=== PATIENT | female | born 1945 | race Caucasian/White ===

== ENCOUNTER 2016-07-09 05:27 | Emergency (ER) | payer OTHER ==
[~2016-07-09] VITALS: Ht 167.6 cm; Wt 110.2 kg
[~2016-07-09 05:27] MED LIST: ALEVE220 MG PO; ASPIR 8181 M1 PO; ASPIR 8181 MG PO; BENADRYL25 MG PO; CALCIUM + D 601 EACH PO; CALTRATE PLUS1 EACH PO; CIPRO500 MG PO; CIPROFLOXACIN500 M1 PO; CITALOPRAM HBR20 MG PO; CLARITIN10 MG PO; COMFORT EZ MC; ESCITALOPRAM OX10 MG PO; FISH OIL 1,0001 EA10 PO; FLONASE16 G1 BOTH NARES; HUMALOG MI100 UNIT/5 SC; HUMALOG MI100 UNIT/6 SC; IRON325 MG PO; LISINOPRIL10 MG PO; MELATIN3 MG PO; MULTI COMPLETE1 EACH PO; NAPROSYN500 MG PO; NOVOLIN 70100 UNIT/2 SQ; NOVOLOG MI100 UNIT/4 SC; NOVOLOG MI100 UNIT/M SC; NovoLIN,Humulin 70/3 SC; OMEGA FISH OIL PO; PRAVACHOL10 MG PO; PROAIR HFA8.5 GM IH; RANITIDINE HCL150 MG PO; RELAFEN500 MG PO; SIMVASTATIN20 MG PO; TRAMADOL HCL50 MG PO; TYLENOL REGULA325 MG PO; ULTRAM50 MG PO; VICODIN,LORT1 TABLET PO; VITAMIN C500 M1 PO
[2016-07-09 05:50] LABS: POINT-OF-CARE METER ID UU14100415
[2016-07-09 06:13] LABS: HEMATOCRIT 32.7 % (36.0-46.0); MCH 31.9 PG (29.0-34.0); MCHC 33.6 G/DL (30.0-36.0); MCV 94.8 FL (83-99); MEAN PLAT.VOLUME 9.1 uM^3 (9.5-12.4); PLATELET COUNT 221 K/uL (156-360); RBC DIS.WIDTH-CV 12.4 % (11.8-14.6); RBC DIS.WIDTH-SD 43.1 % (39-53); RED BLOOD COUNT 3.45 M/uL (3.80-5.20)
[2016-07-09 06:25] LABS: CHLORIDE 111 mEq/L (99-109); POTASSIUM 3.7 mEq/L (3.7-5.4); SODIUM 141 mEq/L (136-147)
[2016-07-09 06:26] LABS: GLUCOSE 90 mg/dL (70-99)
[2016-07-09 06:28] LABS: ANION GAP 10 MEQ/L (2-14)
[2016-07-09 06:30] LABS: GFR ESTIMATE (CALCULATED) > 59 mL/min/
[2016-07-09 06:31] LABS: UREA NITROGEN (BUN) 26 mg/dL (9-23)
[2016-07-09 07:20] LABS: POINT-OF-CARE METER ID UU14100415
[2016-07-09 08:01] VITALS: BP 100/67
== END 2016-07-09 08:49 | disposition home or self-care (01) ==
LOC: EME → EDBD 05:27 → EME 05:27
PROVIDERS: Emergency Medicine
DX: E11.649 Type 2 diabetes mellitus with hypoglycemia without coma (principal); Z79.4 Long term (current) use of insulin; I10 Essential (primary) hypertension; J45.909 Unspecified asthma, uncomplicated; Z79.82 Long term (current) use of aspirin; F17.200 Nicotine dependence, unspecified, uncomplicated
CPT/HCPCS: 80048; 81003; 82948; 85027; 99281; 99283

== ENCOUNTER 2017-07-26 07:00 | Inpatient (IN) | payer OTHER ==
[~2017-07-26] VITALS: Ht 165.1 cm; Wt 114.0 kg
[~2017-07-26 07:00] MED LIST changes: -LISINOPRIL10 MG PO; +VITAMIN C250 MG PO; -VITAMIN C500 M1 PO; +ZESTRIL20 MG PO
[2017-07-26 07:24] LABS: HEMATOCRIT 36.1 % (36.0-46.0); HEMOGLOBIN 12.1 G/DL (11.9-15.5); MCH 32.2 PG (29.0-34.0); MCHC 33.5 G/DL (30.0-36.0); PLATELET COUNT 221 K/uL (156-360); RBC DIS.WIDTH-CV 12.2 % (11.8-14.6); RBC DIS.WIDTH-SD 42.8 % (39-53); RED BLOOD COUNT 3.76 M/uL (3.80-5.20); WHITE BLOOD COUNT 10.4 K/uL (4.1-10.2)
[2017-07-26 08:01] LABS: ALBUMIN 3.5 G/DL (3.2-4.8); ALKALINE PHOSPHATASE 59 IU/L (3-129); ALT (GPT) 13 IU/L (3-49); AST (GOT) 18 IU/L (2-34); CHLORIDE 110 MEQ/L (99-109); CREATININE 1.1 MG/DL (0.6-1.3); GFR ESTIMATE (CALCULATED) 52 mL/min/; GLUCOSE 57 mg/dL (70-99); POTASSIUM 3.9 MEQ/L (3.7-5.4); SODIUM 142 MEQ/L (136-147); TOTAL BILIRUBIN 0.3 MG/DL (0.0-1.0); TOTAL PROTEIN 6.3 G/DL (6.4-8.3); UREA NITROGEN (BUN) 33 mg/dL (9-23)
[2017-07-26 08:42] LABS: APPEARANCE CLEAR ((CLEAR)); BILIRUBIN NEGATIVE; BLOOD NEGATIVE; COLOR YELLOW ((YELLOW)); GLUCOSE (STRIP) NEGATIVE; KETONES NEGATIVE; LEUKOCYTES NEGATIVE; NITRITE NEGATIVE; PROTEIN (STRIP) NEGATIVE; SPECIFIC GRAVITY 1.017 (1.000-1.030); UCUL ADDED? NO; UROBILINOGEN 0.2 MG/DL (0.2-1.0)
[2017-07-26] MEDS ORDERED: HUMALOG MI100 UNIT/6 SC ×2 (11:34→11:35)
[2017-07-26] MEDS ORDERED: CALCIUM600 M1 PO (11:36)
[2017-07-26] MEDS ORDERED: VITAMIN D-32000 UNI2 PO (11:36)
[2017-07-26] MEDS ORDERED: FLOVENT 11120 INHALA IH (11:37)
[2017-07-26 11:55] LABS: TROP-I INTERPRETATION NEGATIVE; TROPONIN-I < 0.01 ng/mL (0.0-0.30)
[2017-07-26 11:57] LABS: CREATINE KINASE 102 IU/L (1-294); TOTAL CK 102 IU/L (1-294)
[2017-07-26 12:06] VITALS: BP 140/60
[2017-07-26 12:56] LABS: CK-MB 2.1 ng/mL (0.0-4.9); CKMB RELATIVE INDEX 2.1 (0.0-3.9)
[2017-07-26 13:56] LABS: HEMOGLOBIN A1c (GLYCOHEMOGLOB) 6.8 % (Below 5.7)
[2017-07-26 18:13] LABS: TROP-I INTERPRETATION NEGATIVE; TROPONIN-I < 0.01 ng/mL (0.0-0.30)
[2017-07-26 18:43] VITALS: BP 127/58
[2017-07-26 23:43] LABS: TROP-I INTERPRETATION NEGATIVE; TROPONIN-I < 0.01 ng/mL (0.0-0.30)
[2017-07-27 00:10] VITALS: BP 132/62
[2017-07-27 04:26] VITALS: BP 137/66
[2017-07-27 04:53] LABS: BASOPHIL (%) 0.4 % (0-1); EOSINOPHIL (%) 1.8 % (0-5); EOSINOPHIL COUNT 0.1 K/uL (0-0.3); HEMATOCRIT 32.4 % (36.0-46.0); HEMOGLOBIN 10.8 G/DL (11.9-15.5); IMMATURE GRANULOCYTE (%) 0.4 % (0.0-0.7); LYMPHOCYTE (%) 29.6 % (15-42); MCHC 33.3 G/DL (30.0-36.0); MCV 95.9 FL (83-99); MONOCYTE (%) 9.1 % (3-12); MONOCYTE COUNT 0.6 K/uL (0-0.8); NEUTROPHIL (%) 58.7 % (45-76); NEUTROPHIL COUNT 3.9 K/uL (1.8-6.4); PLATELET COUNT 198 K/uL (156-360); RBC DIS.WIDTH-CV 12.4 % (11.8-14.6); RBC DIS.WIDTH-SD 43.4 % (39-53); RED BLOOD COUNT 3.38 M/uL (3.80-5.20); WHITE BLOOD COUNT 6.7 K/uL (4.1-10.2)
[2017-07-27 05:08] LABS: CHLORIDE 112 mEq/L (99-109); POTASSIUM 4.6 mEq/L (3.7-5.4); SODIUM 141 mEq/L (136-147)
[2017-07-27 05:11] LABS: TOTAL PROTEIN 5.4 g/dL (6.4-8.3)
[2017-07-27 05:12] LABS: TOTAL BILIRUBIN 0.4 mg/dL (0.0-1.0)
[2017-07-27 05:14] LABS: CREATININE 1.2 mg/dL (0.6-1.3); GFR ESTIMATE (CALCULATED) 47 mL/min/
[2017-07-27 05:16] LABS: AST (GOT) 19 IU/L (2-34); DIRECT BILIRUBIN 0.2 mg/dL (0.0-0.3)
[2017-07-27 05:25] LABS: ALBUMIN 3.1 g/dL (3.2-4.8)
[2017-07-27 05:33] LABS: ALKALINE PHOSPHATASE 67 IU/L (3-129)
[2017-07-27 05:34] LABS: UREA NITROGEN (BUN) 30 mg/dL (9-23)
[2017-07-27 05:36] LABS: ALT (GPT) 13 IU/L (3-49)
[2017-07-27 05:40] LABS: GLUCOSE 90 mg/dL (70-99)
[2017-07-27 07:52] VITALS: BP 119/81
[2017-07-27 08:14] LABS: THYROTROPIN (TSH) 0.97 MIU/L (0.4-5.5)
[2017-07-27 21:00] VITALS: BP 122/66
[2017-07-27 23:43] VITALS: BP 156/63
[2017-07-28 03:28] VITALS: BP 151/65
[2017-07-28 05:26] LABS: BASOPHIL (%) 0.4 % (0-1); EOSINOPHIL (%) 2.1 % (0-5); EOSINOPHIL COUNT 0.1 K/uL (0-0.3); HEMOGLOBIN 11.2 G/DL (11.9-15.5); IMMATURE GRANULOCYTE (%) 0.4 % (0.0-0.7); LYMPHOCYTE (%) 38.4 % (15-42); MCH 30.9 PG (29.0-34.0); MCV 96.4 FL (83-99); MONOCYTE (%) 10.9 % (3-12); MONOCYTE COUNT 0.6 K/uL (0-0.8); NEUTROPHIL (%) 47.8 % (45-76); NEUTROPHIL COUNT 2.5 K/uL (1.8-6.4); PLATELET COUNT 215 K/uL (156-360); RBC DIS.WIDTH-CV 12.1 % (11.8-14.6); RBC DIS.WIDTH-SD 42.9 % (39-53); RED BLOOD COUNT 3.63 M/uL (3.80-5.20); WHITE BLOOD COUNT 5.2 K/uL (4.1-10.2)
[2017-07-28 06:26] LABS: ALBUMIN 3.3 G/DL (3.2-4.8); ALKALINE PHOSPHATASE 57 IU/L (3-129); ALT (GPT) 11 IU/L (3-49); AST (GOT) 16 IU/L (2-34); CHLORIDE 111 MEQ/L (99-109); GFR ESTIMATE (CALCULATED) 58 mL/min/; POTASSIUM 4.8 MEQ/L (3.7-5.4); SODIUM 141 MEQ/L (136-147); TOTAL PROTEIN 5.6 G/DL (6.4-8.3); UREA NITROGEN (BUN) 24 mg/dL (9-23)
[2017-07-28 06:31] LABS: GLUCOSE 163 mg/dL (70-99); TOTAL BILIRUBIN 0.4 MG/DL (0.0-1.0)
[2017-07-28 09:52] VITALS: BP 154/73
[2017-07-28] MEDS ORDERED: HUMALOG MI100 UNIT/6 SC (11:25)
[2017-07-28] MEDS ORDERED: DOCUSATE SODIU100 MG PO (11:25)
[2017-07-28 12:26] VITALS: BP 143/81
[2017-07-28 16:17] VITALS: BP 137/87
== END 2017-07-28 19:02 | disposition home or self-care (01) | DRG 639 ==
LOC: EME → EDBD 07:00 → EME 07:00 → 4SOUTH 10:59 → EDOF 10:59 → ENRESERV 11:06 → 4SOUTH 11:56
PROVIDERS: Emergency Medicine Emergency Medical Services; Hospitalist; Internal Medicine; Nurse Practitioner Adult Health; Nurse Practitioner Family
DX: E11.649 Type 2 diabetes mellitus with hypoglycemia without coma (principal); I10 Essential (primary) hypertension; R00.1 Bradycardia, unspecified; R55 Syncope and collapse; E66.9 Obesity, unspecified; F17.210 Nicotine dependence, cigarettes, uncomplicated; E78.5 Hyperlipidemia, unspecified; S00.11XA Contusion of right eyelid and periocular area, initial encounter; R51 Headache; E11.51 Type 2 diabetes mellitus with diabetic peripheral angiopathy without gangrene; R26.81 Unsteadiness on feet; F32.9 Major depressive disorder, single episode, unspecified; J44.9 Chronic obstructive pulmonary disease, unspecified; R60.0 Localized edema; Y92.003 Bedroom of unspecified non-institutional (private) residence as the place of occurrence of the external cause; W06.XXXA Fall from bed, initial encounter; Y93.84 Activity, sleeping; Z90.49 Acquired absence of other specified parts of digestive tract; Z79.4 Long term (current) use of insulin; Z80.49 Family history of malignant neoplasm of other genital organs; Z83.3 Family history of diabetes mellitus; Z88.6 Allergy status to analgesic agent; Z88.5 Allergy status to narcotic agent; Z88.0 Allergy status to penicillin; Z88.2 Allergy status to sulfonamides; Z88.8 Allergy status to other drugs, medicaments and biological substances; Z79.899 Other long term (current) drug therapy; Z79.82 Long term (current) use of aspirin; Z68.41 Body mass index [BMI] 40.0-44.9, adult; Z89.421 Acquired absence of other right toe(s)
CPT/HCPCS: 70450; 70486; 70551; 71045; 80048; 80053; 80076; 81003; 82550 91; 82553; 82948; 83036; 84443; 84484; 85025; 85027; 85610; 85730; 86850; 86900; 86901; 93005; 93306; 93880; 94640; 94799; 97530 GO; 99281; 99285; G0378; G8987 GO CJ; G8988 CI; G8989 GO CI; J1644; J1815; J7030; J7042